=== PATIENT | male | born 1965 | race American Indian/Alaskan Native ===

== ENCOUNTER 2017-01-22 20:50 | Emergency (ER) | payer BC ==
[2017-01-22 20:51] VITALS: BMI 32.5
[2017-01-22 20:59] VITALS: BP 126/85; PULSE 82; RESP 16; TEMP 98.2; O2SAT 96
--- NOTE | 2017-01-22 21:15 | ED PDOC ---
Arrival/HPI - General Chief Complaint: ENT Problem Time Seen by Provider: 01/22/17 21:05 Historian: Patient - History of Present Illness Narrative History of Present Illness (Text): 01/22/17 21:13 Sidney Montiel is a 51 year old male, denies any significant past medical history , who presents to the emergency department complaining of sore throat. Patient states he began experiencing a sore throat after eating fried chicken yesterday evening, notes sore throat is worse tonight. Patient also report some abdominal pain after eating yesterday, but denies any abdominal pain currently. Patient denies any fever, chills, cough, nausea, vomiting, diarrhea, urinary symptoms, back pain, neck pain, headache, dizziness, or any other complaints. Time/Duration: Other (yesterday) Symptom Onset: Gradual Symptom Course: Unchanged Activities at Onset: Light Context: Home Past Medical History - Provider Review Nursing Documentation Reviewed: Yes - Gastrointestinal Other/Comment: gastric reflux - Psychiatric Hx Substance Use: No - Anesthesia Hx Anesthesia: No Family/Social History - Physician Review Nursing Documentation Reviewed: Yes Family/Social History: Unknown Family HX Smoking Status: Never Smoked Hx Alcohol Use: No Hx Substance Use: No Allergies/Home Meds Allergies/Adverse Reactions: Allergies No Known Allergies Allergy (Verified 04/24/16 18:15) Home Medications: Home Meds Medication Instructions Recorded Confirmed Esomeprazole Magnesium [Nexium] 40 mg PO DAILY 01/22/17 01/22/17 Review of Systems - Physician Review All systems were reviewed & negative as marked: Yes - Review of Systems Constitutional: Normal. absent: Fevers Eyes: Normal ENT: Sore Throat Respiratory: Normal. absent: SOB, Cough Cardiovascular: Normal. absent: Chest Pain Gastrointestinal: Abdominal Pain. absent: Diarrhea, Nausea, Vomiting Genitourinary Male: Normal. absent: Dysuria, Frequency, Hematuria, Urinary Output Changes Musculoskeletal: Normal. absent: Back Pain, Neck Pain Skin: Normal. absent: Rash Neurological: Normal. absent: Headache, Dizziness Endocrine: Normal Hemo/Lymphatic: Normal Psychiatric: Normal Physical Exam Vital Signs Reviewed: Yes Vital Signs Temp Pulse Resp BP Pulse Ox 01/22/17 20:59 98.2 F 82 16 126/85 96 Temperature: Afebrile Blood Pressure: Normal Pulse: Regular Respiratory Rate: Normal Appearance: Positive for: Well-Appearing, Non-Toxic, Comfortable Pain Distress: None Mental Status: Positive for: Alert and Oriented X 3 - Systems Exam Head: Present: Atraumatic, Normocephalic Pupils: Present: PERRL Extroacular Muscles: Present: EOMI Conjunctiva: Present: Normal Ears: Present: Normal, NORMAL TM, Normal Canal. No: Erythema, TM Bulging, Fluid , TM Perf Mouth: Present: Moist Mucous Membranes. No: Dry Pharnyx: Present: Normal. No: ERYTHEMA, EXUDATE, TONSILS ENLARGED, Peritonsilar Swelling, Uvular Deviation, Muffled/Hoarse Voice, Strider, Soft Palate/Uvular Edema Neck: Present: Normal Range of Motion. No: Meningeal Signs, MIDLINE TENDERNESS , Paraspinal Tenderness Respiratory/Chest: Present: Clear to Auscultation, Good Air Exchange. No: Respiratory Distress, Accessory Muscle Use Cardiovascular: Present: Regular Rate and Rhythm, Normal S1, S2. No: Murmurs Abdomen: Present: Normal Bowel Sounds. No: Tenderness, Distention, Peritoneal Signs Back: Present: Normal Inspection. No: CVA Tenderness, Midline Tenderness, Paraspinal Tenderness Upper Extremity: Present: Normal Inspection. No: Cyanosis, Edema Lower Extremity: Present: Normal Inspection. No: Edema Neurological: Present: GCS=15, CN II-XII Intact, Speech Normal Skin: Present: Warm, Dry, Normal Color. No: Rashes Psychiatric: Present: Alert, Oriented x 3, Normal Insight, Normal Concentration Medical Decision Making ED Course and Treatment: 01/22/17 21:13 Impression: 51 year old male complaining of sore throat since yesterday. Also report abdominal pain after eating yesterday. Differential Diagnosis included but are not limited to: pharyngitis vs. influenza Plan: -- EKG -- Labs -- Rapid flu/strep, throat culture -- Reassess and disposition Prior Visits: Notes and results from previous visits were reviewed. On 04/24/2016, pt was seen in the Emergency department for cough, body aches, and throat pain. Pt was d/c home on Tamiflu, Tylenol, and Zithromax. Progress Notes: 01/22/17 22:31 Reviewed EKG, NSR at [address]-segment elevations or depressions, no T-wave inversions, normal intervals. 01/22/17 23:00 Negative rapid flu/strep. On reevaluation the patient feels better and is in no acute distress. I have discussed the results and plan with the patient, who expresses understanding. Patient given the opportunity to ask question, all questions were answered and there is agreement with the plan to discharge the patient home. - Lab Interpretations Lab Results: 01/22/17 21:30 01/22/17 21:30 Lab Results 01/22/17 21:30: Influenza Typ A,B (EIA) Negative for flu a/b, Grp A Beta Strep Ag Negative 01/22/17 21:30: WBC 8.9, RBC 5.19, Hgb 15.0, Hct 44.8, MCV 86.3, MCH 28.9, MCHC 33.5, RDW 12.6, Plt Count 339, MPV 8.8, Gran % 27.8 L, Lymph % (Auto) 60.3 H, Stokes % (Auto) 9.0 H, Eos % (Auto) 2.7, Baso % (Auto) 0.2, Gran # 2.48, Lymph # 5.4 H, Stokes # 0.8 H, Eos # 0.2, Baso # 0.02 01/22/17 21:30: Sodium 143, Potassium 4.5, Chloride 102, Carbon Dioxide 30, Anion Gap 16, BUN 11, Creatinine 1.2, Est GFR ( Amer) > 60, Est GFR (Non- Af Amer) > 60, Random Glucose 106, Calcium 9.6, Total Bilirubin 0.7, AST 35, ALT 43, Alkaline Phosphatase 70, Total Protein 8.1, Albumin 4.4, Globulin 3.7, Albumin/Globulin Ratio 1.2 I have reviewed the lab results: Yes - Medication Orders Current Medication Orders: Discontinued Medications Levofloxacin (Levaquin) 500 mg PO STAT STA Stop: 01/22/17 22:40 Last Admin: 01/22/17 23:03 Dose: 500 mg - Elianaibe Statement The provider has reviewed the documentation as recorded by the Bogdan Lacey All medical record entries made by the Elianaibshira were at my direction and personally dictated by me. I have reviewed the chart and agree that the record accurately reflects my personal performance of the history, physical exam, medical decision making, and the department course for this patient. I have also personally directed, reviewed, and agree with the discharge instructions and disposition. Disposition/Present on Arrival - Present on Arrival Any Indicators Present on Arrival: No History of DVT/PE: No History of Uncontrolled Diabetes: No Urinary Catheter: No History of Decub. Ulcer: No History Surgical Site Infection Following: None - Disposition Have Diagnosis and Disposition been Completed?: Yes Diagnosis: Pharyngitis Disposition: HOME/ ROUTINE Disposition Time: 23:00 Condition: GOOD Discharge Instructions (ExitCare): Pharyngitis (ED) Prescriptions: levoFLOXacin [Levaquin] 500 mg PO DAILY #10 tab Forms: [employer] (Kyrgyz), WORK NOTE
[2017-01-22 21:46] LABS: BASO # 0.02 K/mm3 (0.0-2.0); BASO % 0.2 % (0.0-3.0); EOS # 0.2 (0.0-0.7); EOS % 2.7 % (1.5-5.0); GRAN # 2.48 (1.4-6.5); GRAN % 27.8 % (50.0-68.0); HEMATOCRIT 44.8 % (42.0-52.0); LYMPH # 5.4 (1.2-3.4); LYMPH % 60.3 % (22.0-35.0); MEAN CELL VOLUME 86.3 fl (80.0-105.0); MEAN CORPUSCULAR HEMOGLOBIN 28.9 pg (25.0-35.0); MEAN CORPUSCULAR HGB CONC 33.5 g/dl (31.0-37.0); MEAN PLATELET VOLUME 8.8 fl (7.0-11.0); MONO # 0.8 (0.1-0.6); RED CELL DISTRIBUTION WIDTH 12.6 % (11.5-14.5); WHITE BLOOD COUNT 8.9 10^3/ul (4.5-11.0)
[2017-01-22 21:50] LABS: ALB/GLOB RATIO 1.2 (1.1-1.8); ALKALINE PHOSPHATASE 70 U/L (38-126); ALT/SGPT 43 U/L (7-56); AST/SGOT 35 U/L (17-59); BILIRUBIN,TOTAL 0.7 mg/dL (0.2-1.3); BLOOD UREA NITROGEN 11 mg/dL (7-21); CALCIUM 9.6 mg/dL (8.4-10.5); CARBON DIOXIDE 30 mmol/L (21-33); CHLORIDE 102 mmol/L (98-107); GFR AFRICAN-AMERICAN > 60; GLUCOSE,RANDOM 106 mg/dL (70-110); POTASSIUM 4.5 mmol/L (3.6-5.0); SODIUM 143 mmol/L (132-148); TOTAL PROTEIN 8.1 g/dL (5.8-8.3)
[2017-01-22] MEDS ORDERED: levoFLOXacin 500 MG TAB PO STA (22:39)
--- NOTE | 2017-01-23 09:16 | CARD ---
APPROVED REPORT EKG Measurement Heart [id number] <Conclusion> Normal sinus rhythm Normal ECG
== END 2017-01-22 23:05 | disposition home or self-care (01) ==
LOC: ED 20:50
DX: J02.9 Acute pharyngitis, unspecified (principal)